=== PATIENT | male | born 1945 | race Caucasian/White ===

== ENCOUNTER 2018-07-14 15:22 | Outpatient (CLI) | payer MEDICARE ==
--- NOTE | 2018-07-14 17:36 | MRI ---
MRI RIGHT SHOULDER WITHOUT CONTRAST: HISTORY: M25.54. COMPARISON: None. FINDINGS: BICEPS TENDON: There is longitudinal split tear of the extraarticular biceps tendon at the intertrabecular groove. No normal intraarticular the biceps tendon is appreciated before it is ruptured. LABRUM: There is truncation of the superior labrum with tearing throughout the superior and posterior superio r labrum. ROTATOR CUFF: There is a full-thickness rupture of the anterior 1 cm fibrous supraspinatus tendon from the footplat e with tendon retracted a centimeter. There is a high-grade undersurface partial tear of the remaind er of the supraspinatus tendon, 50-75% thickness, with fibers retracted 2.3 cm from the footplate. E xtensive interstitial tearing throughout the infraspinatus tendon. MUSCLES: Muscle signal and bulk is normal. SOFT TISSUES: Moderate synovitis. Loss of normal subcoracoid fat. Mild thickening of the axillary pouch and infer ior glenohumeral ligament. There is a moderate-sized subacromial-subdeltoid bursal effusion. BONES: There is a type III acromion with a large subacromial keel osteophyte at the coracoacromial ligament. IMPRESSION: 1. Full-thickness rupture anterior 1 cm supraspinatus tendon from the foot plate retracted a centime ter. 2. Remainder of the supraspinatus tendon has a 50-75% undersurface partial tear from the foot plate retracted to the mid humeral head. 3. Truncation of the superior labrum with extensive tear throughout the superior and posterior super ior labrum. 4. Scared biceps tendon at the intertrabecular groove with no normal intraarticular tendon present. 5. Moderate synovitis. POS: [facility]
== END 2018-07-14 15:23 | disposition home or self-care (01) ==
LOC: SCSMRI 15:22
PROVIDERS: ATTEND Orthopaedic Surgery
DX: M25.511 Pain in right shoulder (principal); S46.911A Strain of unspecified muscle, fascia and tendon at shoulder and upper arm level, right arm, initial encounter; M75.101 Unspecified rotator cuff tear or rupture of right shoulder, not specified as traumatic; M65.811 Other synovitis and tenosynovitis, right shoulder

== ENCOUNTER 2020-01-24 10:43 | Outpatient (CLI) | payer MEDICARE ==
--- NOTE | 2020-01-24 11:24 | RAD ---
Right knee 4 views HISTORY: Right knee injury. FINDINGS: Minimal joint space narrowing medial compartment. Mild tricompartmental osteophytosis. 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 Well-corticated calcification over also overlies the anterior medial soft tissues near the proximal tibial shaft. No acute fracture, dislocation, or fluid distention of the suprapatellar bursa. IMPRESSION: Minimal osteoarthritic changes. No acute osseous abnormalities are demonstrated.
== END 2020-01-24 10:44 | disposition home or self-care (01) ==
LOC: SCSRAD 10:43
PROVIDERS: ATTEND Nurse Practitioner Family
DX: M25.561 Pain in right knee (principal); M17.11 Unilateral primary osteoarthritis, right knee